=== PATIENT | female | born 1995 | race Caucasian/White ===

== ENCOUNTER 2025-02-20 11:33 | Emergency (ER) | payer BC, SELFPAY ==
[2025-02-20 11:45] VITALS: BP 115/88; PULSE 72; RESP 16; TEMP 37.1; O2SAT 100
[2025-02-20 11:58] LABS: EDUAAPPEAR Cloudy; EDUABILI Negative (Negative); EDUABLOOD 3+ (Negative); EDUACOLOR1 Yellow; EDUAGLUCOSE Negative (Negative); EDUAKETONE Negative (Negative); EDUALEUKO 2+ (Negative); EDUANITRATE Negative (Negative); EDUAPH 5.5; EDUAPROTEIN Trace (Negative); EDUASPGRAVITY 1.025; EDUAUROBILI 0.2
--- NOTE | 2025-02-20 12:32 | ED_ITS ---
HPI - Female Genitourinary General Chief complaint: Urogenital-Female Stated complaint: UTI SYMPTOMS Time Seen by Provider: 02/20/25 12:28 Source: patient and RN notes reviewed Mode of arrival: ambulatory Limitations: no limitations History of Present Illness HPI Narrative: 30-year-old female patient presents today complaining of urgency and frequency since yesterday, worse today. Denies abdominal pain, dysuria or hematuria. No OTC treatment prior to arrival. No recent antibiotic use. Related Data Home Medications ?Medication ?Instructions ?Recorded ?Confirmed ?Last Taken ?Type levonorgestrel-ethinyl estradiol tablet 02/20/25 Unkn own History 0.1 mg-20 mcg tablet (Vienva) Allergies Allergy/AdvReac Type Severity Reaction Status Date / Time No Known Allergies Allergy Verified 02/20/25 11:43 [facility] Social History Social History (Reviewed 02/20/25 @ 12:32 by Elsi Garcia, [employer], [employer]) Smoking status: Never smoker Alcohol intake: never Comments At time of signature, I have reviewed and agree with nursing past medical, surgical, social and family history unless otherwise noted. Please see nursing chart for further information. There is no relevant family history pertinent to the presenting complaint Exam Narrative: GENERAL: Well-appearing, well-nourished, and in no acute distress. HEAD: Normocephalic, atraumatic. EYES: EOMI. No redness or drainage. Conjunctivae normal. ENT: Mucous membranes pink and moist. NECK: Normal AROM. CHEST: No respiratory distress. Clear to auscultation. HEART: Regular rate and rhythm. No murmur appreciated. ABDOMEN: Soft, nontender, nondistended, normal active bowel sounds. -CVAT EXTREMITIES: Normal range of motion. No edema. SKIN: Warm, dry, no rash. Capillary refill normal. Normal skin turgor. NEURO: No focal deficits. Alert and oriented x3. Gait steady. PSYCH: Normal affect. No signs of depression or anxiety. Course Course Level of Care: Express Care Visit Vital Signs Vital signs: Vital Signs Temperature 98.7 F 02/20/25 11:45 Pulse Rate 72 02/20/25 11:45 Respiratory Rate 16 02/20/25 11:45 Blood Pressure 115/88 02/20/25 11:45 Pulse Oximetry 100 02/20/25 11:45 Temperature 98.7 F 02/20/25 11:45 Pulse Rate 72 02/20/25 11:45 Respiratory Rate 16 02/20/25 11:45 Blood Pressure 115/88 02/20/25 11:45 Pulse Oximetry 100 02/20/25 11:45 Reviewed MDM - Female Genitourinary MDM Narrative Medical decision making narrative: 30-year-old female patient presents today complaining of urgency and frequency since yesterday, worse today. Denies abdominal pain, dysuria or hematuria. No OTC treatment prior to arrival. No recent antibiotic use. Normal physical exam. Urinalysis shows 2+ leukocytes, trace protein, 3+ blood. Will treat patient with a course of Augmentin. Culture pending. Patient agrees with plan. Vital signs stable. Anticipatory guidance given. Differential Diagnosis Differential diagnosis: Likely urinary tract infection and cystitis Lab Data Attestation: I reviewed the patient's lab results. Labs: Lab Results 02/20/25 Range/Units 11:56 POC Urine Color Yellow POC Urine Clarity Cloudy POC Urine pH 5.5 POC Ur Specif [place] 1.025 POC Urine Protein Trace (Negative) POC Ur Glucose (UA) Negative (Negative) POC Urine Ketones Negative (Negative) POC Urine Blood 3+ (Negative) POC Urine Nitrite Negative (Negative) POC Urine Bilirubin Negative (Negative) POC Urine Urobilinogen 0.2 POC U Leukocyte Esteras 2+ (Negative) Critical Care Time Critical Care Time Critical Care Time: No Discharge Plan Discharge Clinical Impression: Urinary tract infection Qualifiers: Urinary tract infection type: acute cystitis Hematuria presence: with hematuria Qualified Code(s): N30.01 - Acute cystitis with hematuria Patient Disposition: Home Condition: Stable Instructions: Antibiotic Form, Urinary Tract Infection in Women (ED) Additional Instructions: Your urine shows infection today. Take Augmentin as prescribed until gone. Your urine will be sent of for a culture to identify what type of bacteria is causing your infection. If the culture shows that your medication will not get rid of your infection, you will be notified and a new antibiotic will be called in for you. If your symptoms worsen to include fever, sweats, chills, nausea, vomiting, severe abdominal or back pain, please go to the ER for further evaluation. Patient Language: Danish Prescriptions: New amoxicillin-pot clavulanate 875-125 mg tablet 1 tablet PO Q12H 7 Days Qty: 14 0RF No Action levonorgestrel-ethinyl estrad [Vienva] 0.1-20 mg-mcg tablet Follow-up/Referrals: Mohinder,Wanda Webster APN [Primary Care Provider] Time of Disposition: 12:34
== END 2025-02-20 12:37 | disposition home or self-care (01) ==
PROVIDERS: Emergency Provider Nurse Practitioner; PCP Nurse Practitioner
DX: N30.01 Acute cystitis with hematuria (principal)
CPT/HCPCS: 81003; 87086; 99203; G0463